=== PATIENT | male | born 1990 | race American Indian/Alaskan Native ===

== ENCOUNTER 2018-02-17 08:32 | Emergency (ER) | payer OTHER ==
[~2018-02-17] VITALS: Ht 165.1 cm; Wt 77.1 kg
[2018-02-17 09:43] VITALS: BP 127/80; TEMP 98
== END 2018-02-17 09:43 | disposition home or self-care (01) ==
LOC: ED 08:32
PROC: 0HQFXZZ Repair Right Hand Skin, External Approach (ICD-10-PCS; principal; 2018-02-17)
DX: S61.411A Laceration without foreign body of right hand, initial encounter (principal); W29.8XXA Contact with other powered hand tools and household machinery, initial encounter; Y92.69 Other specified industrial and construction area as the place of occurrence of the external cause
CPT/HCPCS: 90471; 90715; 99283

== ENCOUNTER 2018-02-25 16:54 | Emergency (ER) | payer OTHER ==
[~2018-02-25] VITALS: Ht 165.1 cm; Wt 77.1 kg
[2018-02-25 17:05] VITALS: BP 126/75; TEMP 98.1
== END 2018-02-25 17:45 | disposition home or self-care (01) ==
LOC: ED 16:54
DX: Z48.02 Encounter for removal of sutures (principal)